=== PATIENT | male | born 1975 | race Caucasian/White ===

== ENCOUNTER 2024-03-21 16:22 | Emergency (ER) | payer OTHER ==
[~2024-03-21] VITALS: Ht 167.6 cm; Wt 110.0 kg
[2024-03-21 16:24] VITALS: O2SAT 98
[2024-03-21] MEDS: LABETALOL 5MG/ML 4ML INJ IV ONE (17:10)
[2024-03-21 18:00] LABS: BASOPHILS % 0.5 % (0.0-2.0); EOSINOPHILS % 2.1 % (0.0-5.0); HEMATOCRIT. 42.7 % (42.0-52.0); HEMOGLOBIN. 14.9 g/dL (14.0-18.0); LYMPHOCYTES % 18.5 % (20.0-50.0); MEAN CORPUSCULAR HEMOGLOBIN 30.4 pg (28.0-32.0); MEAN CORPUSCULAR HGB CONC 34.8 g/dL (31.0-37.0); MEAN CORPUSCULAR VOLUME 87.3 fL (80.0-94.0); MEAN PLATELET VOLUME 7.2 fl (7.4-10.4); MONOCYTES % 8.9 % (2.0-8.0); PLATELET 280 x1000/uL (130-400); RED BLOOD CELL COUNT 4.89 mill/uL (4.7-6.1); RED CELL DISTRIBUTION WIDTH 13.2 % (11.6-14.6); WHITE BLOOD COUNT 8.4 x1000/uL (4.5-11.0)
[2024-03-21 18:02] LABS: CHLORIDE 103 mEq/L (98-107); POTASSIUM 4.6 mEq/L (3.5-5.1); SODIUM 137 mEq/L (136-145)
[2024-03-21 18:03] LABS: CARBON DIOXIDE 27 mEq/L (21-32)
[2024-03-21 18:04] LABS: CALCIUM 9.6 mg/dL (8.7-10.4)
[2024-03-21 18:08] LABS: GLUCOSE 165 mg/dL (70-105); UREA NITROGEN BLOOD 9 mg/dL (9-23)
[2024-03-21 18:09] LABS: ETHANOL BLOOD < 10 mg/dL (<10)
[2024-03-21 18:11] LABS: TROPONIN I HIGH SENSITIVITY 21 ng/L (3.0-53)
[2024-03-21] MEDS ORDERED: LISI40TA13 MT (18:27)
[2024-03-21] MEDS: LISINOPRIL 40MG TABLET PO ONE (18:47)
[2024-03-21 19:15] VITALS: BP 174/87; PULSE 79; RESP 17; TEMP 37; O2SAT 98
== END 2024-03-21 19:17 | disposition home or self-care (01) ==
LOC: ER 16:22
DX: I10 Essential (primary) hypertension (principal); E11.9 Type 2 diabetes mellitus without complications; R51.9 Headache, unspecified; Z79.899 Other long term (current) drug therapy; Z86.73 Personal history of transient ischemic attack (TIA), and cerebral infarction without residual deficits
CPT/HCPCS: 80048; 80320; 83880; 85025; 84484; 36415; 71045; 70450; 93005; 99285; J3490; Z7610; G0480